=== PATIENT | female | born 1970 | race Caucasian/White ===

== ENCOUNTER 2016-06-14 09:44 | Inpatient (IN) | payer OTHER ==
--- NOTE | ~2016-06-14 | PN ---
Unit #: [id number] #: [id number] Patient: DARBY HIGH [id number] [facility] [address] [place] [address] [id number] MR#: [id number] NAME: DARBY HIGH. ROOM: P178 Age: 46 Sex: F Admission Date: 06/14/2016 : 1970 Attending Physician: Lydia Dean M.D. Admitting Physician: Lydia Dean M.D. Primary Care Physician: Primary Care Physician Phyllis SAMSON NOTES DATE June 19, 2016 DISCUSSION Ms. High is a 46-year-old white female, who was seen today and chart was reviewed and the case was discussed with the staff. The patient has been anxious, withdrawn, and rather seclusive to herself. She stated that she is doing "a little bit better." Overall, she has been taking the medications and tolerating them fairly well with no reported side effects. MENTAL STATUS EXAMINATION Middle-aged white female, who was casually dressed with fair personal hygiene and appears to be in no acute distress or discomfort. The patient was awake and alert on interaction with intact orientation. Her mood is anxious with a congruent affect. The patient denies any suicidal or homicidal ideations. Her insight and judgment remain slightly impaired. TREATMENT PLAN 1. We will continue her on her current medications and treatment protocol, and will monitor her response to the medications, and make further adjustments as needed. 2. We will continue to followup. Dictated by... Rachel Garcia/angelica TD: 06/20/2016 10:35 JOB #: [id number] Unit #: [id number] #: [id number] Patient: DARBY HIGH PARMJIT PROGRESS NOTES Page 1 of 1 X Lydia Dean MD PROGRESS NOTE
--- NOTE | ~2016-06-14 | HP ---
Unit #: [id number] #: [id number] Patient: PAIGE HIGH [id number] [place] [address] [id number] I MR#: [id number] NAME: PAIGE HIGH. ROOM: P178 Age: 46 Sex: F Admission Date: 06/14/2016 : 1970 Attending Physician: Lydia Dean M.D. Admitting Physician: Lydia Dean M.D. Primary Care Physician: Primary Care Physician No HISTORY AND PHYSICAL HISTORY OF PRESENT ILLNESS Paige is a 46 year old, admitted to [facility] for the continued drug use. She has had numerous admissions to this facility for the same. PAST MEDICAL HISTORY 1. 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 2. Hepatitis C. 3. Seizure disorder. 4. Morbid obesity. 5. Degenerative disc disease. a. Chronic pain. PAST SURGICAL HISTORY 1. Right hip. 2. Tonsillectomy and adenoidectomy. 3. Cholecystectomy. 4. Hysterectomy. 5. PE tubes. ALLERGIES NSAIDs, penicillin, Toradol, and Zofran SOCIAL HISTORY She does not smoke, drinks alcohol on occasion and admits to a long history of poly-illicit substance abuse to include IV heroin and benzodiazepines. FAMILY HISTORY Medically noncontributory. REVIEW OF SYSTEMS CONSTITUTIONAL: No fever or chills. HEENT: Denies any sore throat, ear pain or runny nose. CARDIOVASCULAR: Denies chest pain, irregular heart rhythm or palpitations. CHEST: Denies shortness of breath or cough. No hemoptysis. GASTROINTESTINAL: Denies nausea, vomiting, diarrhea or chronic constipation. ENDOCRINE: Denies history of increased thirst or urination. No recent significant weight loss or gain. GENITOURINARY: Denies dysuria, frequency, or hematuria. SKIN: Denies any rashes. She does report an abscess along her left leg. This is the site of her IV drug use. HEMATOLOGIC: Denies history of increased bleeding or bruising. Unit #: [id number] #: [id number] Patient: PAIGE HIGH MUSCULOSKELETAL: Denies any hot, swollen joints. No generalized muscle pain. NEUROLOGIC: Denies problems with vision or speech. No frequent, severe headaches. No numbness, tingling or weakness in any extremities. Denies loss of bladder or bowel control. CURRENT MEDICATIONS 1. Detox protocol 2. Keppra 750 mg b.i.d. 3. Neurontin 800 mg t.i.d. 4. Ibuprofen p.r.n. PHYSICAL EXAMINATION GENERAL: Alert, obese, no apparent distress. VITAL SIGNS: Blood pressure 150/80, heart rate 64, respirations 16, and temperature 98.6. WEIGHT: 165 pounds. HEIGHT: 5 feet 3 inches. SKIN: Warm and dry without rash. She does have an approximately golf ball sized red raised, slightly warm and tender area along the left calf. HEENT: Normocephalic. TMs not viewed. Oral and nasal passages clear. Conjunctivae clear. PERRLA. EOMs intact. NECK: Supple without lymphadenopathy or thyromegaly. HEART: Regular rate and rhythm without murmur. LUNGS: Clear. ABDOMEN: Soft, nontender. : Not done. EXTREMITIES: No evidence of cyanosis, clubbing or edema. Moves all without focal deficit. NEUROLOGICAL: Grossly within normal limits. Cranial Nerves: II: Visual ortega are intact. III, IV AND : Extraocular movements are intact. Pupils are equal, round and reactive to light. V: Facial sensation is grossly normal. VII: Facial movements and expression are normal. VIII: Auditory acuity grossly intact. IX, X: Uvula is midline. Phonation is normal. XI: Patient shrugs shoulders and turns head normally. XII: Tongue protrudes in the midline. Sensory and Motor Function: Sensory and motor sensation is grossly normal. Motor: moves all extremities well. Coordination: Gait is normal. Deep Tendon Reflexes: Intact. IMPRESSION 1. IV drug use. 2. Abscess along the left leg. RECOMMENDATIONS Psychiatric, per psychiatrist. MEDICAL 1. I see no contraindications to participating in facility's activities. 2. Detox per protocol. 3. Cleocin 300 mg one p.o. t.i.d. x7 days. MEDICAL PROGNOSIS Good. MEDICAL CONDITION Stable. Unit #: [id number] #: [id number] Patient: PAIGE HIGH Dictated by... Fela Zepeda P.A.-C. for Rachel Antoine/angelica TD: 06/15/2016 12:18 JOB #: [id number] HISTORY AND PHYSICAL Page 1 of 1 X Fela Zepeda HISTORY AND PHYSICAL
--- NOTE | ~2016-06-14 | PN ---
Unit #: [id number] #: [id number] Patient: DARBY HIGH [id number] [facility] [address] [place] [address] [id number] MR#: [id number] NAME: DARBY HIGH. ROOM: P178 Age: 46 Sex: F Admission Date: 06/14/2016 : 1970 Attending Physician: Lydia Dean M.D. Admitting Physician: Lydia Dean M.D. Primary Care Physician: Primary Care Physician Phyllis SAMSON NOTES DATE 06/18/2016 DISCUSSION Ms. High is a 46-year-old white female who was seen today and chart was reviewed and case was discussed with the staff. She has been anxious, withdrawn, and rather seclusive to herself. She had been cooperative with the treatment recommendation and has been taking the medication and tolerating them fairly well. No reported side effects. MENTAL STATUS EXAMINATION Middle-aged white female who is casually dressed with fair personal hygiene, appears to be in no acute distress or discomfort. The patient was awake and alert on interaction with intact orientation. Her mood is anxious with a congruent affect. She denies any suicidal or homicidal ideations. She denies any auditory or visual hallucinations. Her insight and judgment remain slightly impaired. TREATMENT PLAN 1. We will continue her on her current medications and treatment protocol, and we will monitor her response to the medications and make further adjustments as needed. 2. We will continue to follow up. Dictated by... Rachel Garcia/raymundo TD: 06/19/2016 11:44 JOB #: [id number] Unit #: [id number] #: [id number] Patient: DARBY HIGH PARMJIT PROGRESS NOTES Page 1 of 1 X Lydia Dean MD PROGRESS NOTE
--- NOTE | ~2016-06-14 | PA ---
Unit #: [id number] #: [id number] Patient: DARBY HIGH [id number] [facility] [address] [place] [address] [id number] I MR#: [id number] NAME: DARBY HIGH ROOM: P178 Age: 46 Sex: F Admission Date: 06/14/2016 : 1970 Date of Assessment: 06/14/2016 Attending Physician: Lydia Dean M.D. Admitting Physician: Lydia Dean M.D. Primary Care Physician: Primary Care Physician No PSYCHIATRIC ASSESSMENT DATE OF SERVICE 06/14/2016. IDENTIFYING DATA Ms. High is a 46-year-old single white female, who is a resident of [place], [place], and is very well known to us from previous multiple encounters and was self-referred to the hospital on a voluntary basis. CHIEF COMPLAINT "I've been feeling. I want to kill myself." HISTORY OF PRESENT ILLNESS Ms. High is a 46-year-old white female with history of mood disorder and substance abuse and dependence, who was self-referred to the hospital stating that she feels that she wants to kill herself and that her detox symptoms are tricking her suicidal thoughts. She reports not wanting to go through the pain of detox. Reports being addicted to heroin. Reports that she has been using heroin for the last 15 years and has been using at least 1.5 g daily by intravenous route and reports last use was last night. Reports longest period of sobriety was 18 months which was back in 2006. Reports that she has been having suicidal thoughts for the last 2 days and reports current detox symptoms include restlessness, irritability, diarrhea, stomach cramps. Reports having no other drug issues beside heroin, but reports that if she was to leave the hospital, she would attempt as she reports that she attempted last night by taking a bunch of Keppra, however, it did not work. She does have history of seizure disorder and reports that she has not been compliant with the treatment and as such, has been decompensating and does endorse increasing depression, anxiety, feelings of hopelessness and helplessness, and suicidal ideations. SUBSTANCE ABUSE HISTORY The patient reports opioid dependence and has been using heroin for the last 18 years and currently has been using at least a gram of IV heroin on daily basis. PAST PSYCHIATRIC HISTORY The patient has had history of multiple inpatient psychiatric hospitalizations at [facility] and other facilities and currently has not been active in treatment program, is not seeing a psychiatrist, not taking any psychotropic medications. PAST MEDICAL HISTORY Unit #: [id number] #: [id number] Patient: DARBY HIGH Seizure disorder. ALLERGIES Zofran, morphine, Toradol, penicillin, NSAIDs. PERSONAL AND SOCIAL HISTORY A 46-year-old white female, who reports that she is single, unemployed, and lives with her girlfriend and has poor social support system. MENTAL STATUS EXAMINATION Middle-aged white female who was casually dressed with fair personal hygiene, appears to be in no acute distress or discomfort. She was awake and alert on interaction with intact orientation to time, place, and person. Her mood was anxious and depressed with a congruent affect. Her speech was slow and restricted in content. Her thought processes were disorganized with some looseness of associations and flight of ideas and suicidal ideations. Her insight and judgment remain significantly impaired. DIAGNOSTIC IMPRESSION Psychiatric: Major depressive disorder, recurrent, moderate, without psychotic features; opioid dependence, moderate and acute withdrawals. Medical: Seizure disorder. Stressors: Moderate psychosocial stressors. TREATMENT PLAN 1. The patient has presented with a history of substance abuse and mood disorder, and has been decompensating and will need inpatient hospitalization for safety and stabilization. We will start her back on her home medications. We will adjust the medications and monitor response. 2. Supportive therapy was provided to the patient. 3. Safe, structured, and nourishing environment will be provided. ESTIMATED LENGTH OF STAY 4 to 5 days. ABILITY TO HELP SELF Limited. WILLINGNESS TO HELP SELF The patient appears to be willing to help self. STRENGTHS 1. Communicative. 2. Cooperative. PROBLEMS 1. Chronic dysphoric symptoms. 2. Chronic chemical dependency. 3. Poor social support system. DISCHARGE CRITERIA This will be contingent upon the patient's ability to go through detox without having any significant withdrawal symptoms as well as her ability to stay safe to herself, particularly after discharge from the hospital. Dictated by... Unit #: [id number] #: [id number] Patient: DARBY HIGH Lydia Dean M.D. JAYLON/andria TD: 06/15/2016 06:57 JOB #: [id number] PSYCHIATRIC ASSESSMENT Page 1 of 1 X Lydia Dean MD PSYCHIATRIC ASSESSMENT
--- NOTE | ~2016-06-14 | PN ---
Unit #: [id number] #: [id number] Patient: DARBY HIGH [id number] [facility] [address] [place] [address] [id number] MR#: [id number] NAME: DARBY HIGH. ROOM: P178 Age: 46 Sex: F Admission Date: 06/14/2016 : 1970 Attending Physician: Lydia Dean M.D. Admitting Physician: Lydia Dean M.D. Primary Care Physician: Primary Care Physician Phyllis SAMSON NOTES DATE OF SERVICE 06/17/2016 DISCUSSION Ms. High is a 46-year-old white female who was seen today. Chart was reviewed and case was discussed with staff. She has been anxious, withdrawn, and in distress and discomfort and seclusive to herself with persistent depressive symptoms as well as increasing anxiety and has been prescribed p.r.n. Vistaril. Meanwhile, she has been taking the medications and tolerating them fairly well. MENTAL STATUS EXAMINATION Middle-aged white female who is casually dressed with fair personal hygiene, appears to be in no acute distress or discomfort. The patient was awake and alert on interaction with intact orientation. Her mood is anxious with congruent affect. She denies any suicidal or homicidal ideations. Her insight and judgment remain slightly impaired. TREATMENT PLAN 1. We will continue her on her current medications and treatment protocol, and we will monitor her response to the medications and make further adjustments as needed. 2. We will continue to follow up. Dictated by... Rachel Garcia/yossig TD: 06/17/2016 14:42 JOB #: [id number] Unit #: [id number] #: [id number] Patient: DARBY HIGH PROGRESS NOTES Page 1 of 1 X Lydia Dean MD PROGRESS NOTE
--- NOTE | ~2016-06-14 | CO ---
Unit #: [id number] #: [id number] Patient: PAIGE HIGH [id number] [place] [address] [id number] I MR#: [id number] NAME: PAIGE HIGH ROOM: [facility] Age: 46 Sex: F Admission Date: 06/14/2016 : 1970 Attending Physician: Lydia Dean M.D. Primary Care Physician: Primary Care Physician No Consultation Date: 06/14/2016 CONSULTATION REPORT Paige is a 46-year-old who was admitted with an abscess on her thigh. This area was examined, addressed, and treatment outlined under her admission H and P dated 06/15/2016. Please see H and P dated 06/15/2016. Dictated by... Fela Zepeda P.A.-C. for Rachel Antoine/andria TD: 06/16/2016 18:01 JOB #: [id number] CONSULTATION REPORT Page 1 of 1 X Fela Zepeda CONSULTATION REPORT
--- NOTE | ~2016-06-14 | PN ---
Unit #: [id number] #: [id number] Patient: DARBY HIGH [id number] [facility] [address] [place] [address] [id number] MR#: [id number] NAME: DARBY HIGH. ROOM: P178 Age: 46 Sex: F Admission Date: 06/14/2016 : 1970 Attending Physician: Lydia Dean M.D. Admitting Physician: Lydia Dean M.D. Primary Care Physician: Primary Care Physician Phyllis SAMSON NOTES DATE June 16, 2016 DISCUSSION Ms. High is a 46-year-old white female, who was seen today and chart was reviewed and the case was discussed with the staff. She has been anxious, withdrawn, but has not shown any agitation and has been rather seclusive to herself and describes herself to be in distress and discomfort. However, she has been taking the medications and tolerating them fairly well with no reported side effects. MENTAL STATUS EXAMINATION Middle-aged white female, who was casually dressed with fair personal hygiene and appears to be in no acute distress or discomfort. She was awake and alert on interaction with intact orientation. Her mood is anxious and depressed with a congruent affect. She reports having suicidal ideations but denies any homicidal ideations. Her insight and judgment remain slightly impaired. TREATMENT PLAN We will continue her on her current medications and treatment protocol, and will monitor her response to the medications, and make further adjustments as needed. Dictated by... Rachel Garcia/angelica TD: 06/16/2016 09:10 JOB #: [id number] Unit #: [id number] #: [id number] Patient: DARBY HIGH PROGRESS NOTES Page 1 of 1 X Lydia Dean MD PROGRESS NOTE
--- NOTE | ~2016-06-14 | DS ---
Unit #: [id number] #: [id number] Patient: DARBY HIGH [id number] [facility] [address] [place] [address] [id number] I MR#: [id number] NAME: DARBY HIGH. ROOM: P178 Age: 46 Sex: F Admission Date: 06/14/2016 : 1970 Discharge Date: 06/20/2016 Attending Physician: Lydia Dean M.D. Primary Care Physician: Primary Care Physician No DISCHARGE SUMMARY IDENTIFYING DATA Ms. High is a 46-year-old single white female, who is a resident of [place], [place], and was known to us from previous encounter, was self-referred to the hospital on a voluntary basis. DISCHARGE DIAGNOSES Psychiatric: Opioid dependence, moderate and acute withdrawals; opioid-induced mood disorder. Medical: Seizure disorder. Stressors: Moderate psychosocial stressors. HISTORY OF PRESENT ILLNESS Please see initial psychiatric evaluation for details. PAST PSYCHIATRIC HISTORY Please see initial psychiatric evaluation for details. PAST MEDICAL HISTORY Please see initial psychiatric evaluation for details. HOSPITAL COURSE The [facility] and was oriented to the hospital environment. Routine p.r.n. medications were initiated, and she was started back on her home medications and was closely monitored. She was taking the medications regularly and was tolerating them fairly well and was able to come out of the detox without any complications and was willing to continue treatment on an outpatient basis. DISCHARGE MEDICATIONS Seroquel 600 mg at bedtime for bipolar, Requip 1 mg at bedtime for restless legs syndrome, and Keppra 750 mg b.i.d. for seizure disorder. DISCHARGE CONDITION Stable. PROGNOSIS Fair. Dictated by... Lydia Dean M.D. IAA/modl Unit #: [id number] #: [id number] Patient: DARBY HIGH TD: 06/21/2016 08:00 JOB #: [id number] DISCHARGE SUMMARY Page 1 of 1 X Lydia Dean MD X DISCHARGE SUMMARY
--- NOTE | ~2016-06-14 | TN ---
Unit #: [id number] #: [id number] [facility] [id number] [facility] [address] [place] [address] [id number] I MR#: [id number] NAME: DARBY HIGH ROOM: P178 Age: 46 Sex: F Admission Date: 06/14/2016 : 1970 Discharge Date: 06/20/2016 Attending Physician: Lydia Dean M.D. Primary Care Physician: Primary Care Physician No LOC TRANSFER NOTE DATE OF SERVICE 06/22/2016. HISTORY OF PRESENT ILLNESS Ms. High is a 46-year-old single white female, who was stepped down to the outpatient treatment program from the adult inpatient psychiatric unit at [facility], where she was hospitalized under my care from 06/14/2016 to 06/20/2016 and was brought to the hospital with acute depression and suicidal thoughts and relapsed on opioids and was medically detoxed from opioids and was stabilized on her regimen of Seroquel and Neurontin and was stepped down to the outpatient treatment program. When seen by me today, the patient appears to be doing much better and reports that she has been staying sober since she has been out of the hospital, though still has been having some mood swings, but reports that she has been taking the medications and has been tolerating them fairly well with no reported side effects. SUBSTANCE ABUSE HISTORY The patient has a history of opioid dependence, although she has experimented with other drugs over a period of time. Opioids appear to be her drug of choice. PAST PSYCHIATRIC HISTORY The patient has had a history of multiple inpatient psychiatric hospitalization and has been diagnosed and treated for bipolar disorder and substance abuse issues. PAST MEDICAL HISTORY Seizure disorder. PERSONAL AND SOCIAL HISTORY A 46-year-old white female, who reports that she is in a relationship and lives at home with her significant other and has fairly decent social support system. MENTAL STATUS EXAMINATION Middle-aged white female, who was casually dressed with fair personal hygiene, appears to be in no acute distress or discomfort. She was awake and alert on interaction with intact orientation to time, place, and person. Her mood was anxious with a congruent affect. Her speech was slow and goal directed. She denies any suicidal or homicidal ideations and also denies any auditory or visual hallucinations. Her insight and Unit #: [id number] #: [id number] Patient: DARBY HIGH judgment remain slightly impaired. DIAGNOSTIC IMPRESSION Psychiatric: Bipolar disorder, recurrent, moderate, without psychotic features and opioid dependence, moderate. Medical: None. Stressors: Moderate psychosocial stressors. TREATMENT PLAN 1. The patient has presented with a history of mood disorder and substance abuse. We will recommend enrolling her into the outpatient treatment program and maintaining her on her current medications. We will monitor her response. 2. Supportive therapy was provided to the patient. ESTIMATED LENGTH OF STAY 5 to 7 days. ABILITY TO HELP SELF Limited. WILLINGNESS TO HELP SELF The patient appears to be willing to help self. STRENGTHS 1. Communicative. 2. Cooperative. PROBLEMS 1. Chronic dysphoric symptoms. 2. Chronic chemical dependency. 3. Poor social support system. DISCHARGE CRITERIA This will be contingent upon the patient's ability to show resolution of her depression and anxiety as well as her ability to stay safe and sober, particularly after discharge from the program. Dictated by... Lydia Dean M.D. JAYLON/andria TD: 06/22/2016 13:22 JOB #: [id number] LOC TRANSFER NOTE Page 1 of 1 X Lydia Dean MD X LOC TRANSFER NOTE
--- NOTE | ~2016-06-14 | PN ---
Unit #: [id number] #: [id number] Patient: DARBY HIGH [id number] [facility] [address] [place] [address] [id number] MR#: [id number] NAME: DARBY HIGH. ROOM: P178 Age: 46 Sex: F Admission Date: 06/14/2016 : 1970 Attending Physician: Lydia Dean M.D. Admitting Physician: Lydia Dean M.D. Primary Care Physician: Primary Care Physician Phyllis SAMSON NOTES DATE June 15, 2016 DISCUSSION Ms. High is a 46-year-old white female, with substance abuse and mood disorder, who was seen today and chart was reviewed and the case was discussed with the staff. She was seen to be anxious, withdrawn, and in acute distress and discomfort as she goes through detox. Meanwhile, she has been taking the medications and tolerating them fairly well with no reported side effects. MENTAL STATUS EXAMINATION Middle-aged white female, who was casually dressed with fair personal hygiene and appears to be in no acute distress or discomfort. The patient was awake and alert with impaired attention and concentration. Her mood is anxious and depressed with a congruent affect. The patient reports having suicidal ideations but denies any homicidal ideations. Her insight and judgment remain slightly impaired. TREATMENT PLAN 1. We will continue her on her current medications and treatment protocol, and will monitor her response to the medications, and make further adjustments as needed. 2. We will continue to followup. Dictated by... Rachel Garcia/angelica TD: 06/15/2016 08:05 JOB #: [id number] Unit #: [id number] #: [id number] Patient: DARBY HIGH PARMJIT PROGRESS NOTES Page 1 of 1 X Lydia Dean MD PROGRESS NOTE
[2016-06-14 12:34] LABS: URINE APPEARANCE CLOUDY; URINE BILIRUBIN NEG (NEG); URINE BLOOD NEG (NEG); URINE COLOR DK YELLOW; URINE GLUCOSE NEG (NEG); URINE KETONE NEG (NEG); URINE LEUKOCYTE ESTERASE NEG (NEG); URINE NITRATE NEG (NEG); URINE PH 5.5 (5-8); URINE PROTEIN NEG (NEG); URINE SPECIFIC GRAVITY 1.026 (1.003-1.035)
[2016-06-14 12:48] LABS: AMPHETAMINE POS (NEG); BARBITURATES NEG (NEG); BENZODIAZEPINES NEG (NEG); COCAINE NEG (NEG); MARIJUANA NEG (NEG); OPIATES POS (NEG); TRICYCLIC ANTIDEPRESSANTS POS (NEG); U METHADONE NEG (NEG)
[2016-06-16 12:32] LABS: BASOPHIL% 0.3 % (0-2.5); EOSINOPHIL% 0.1 % (0.0-7.0); HEMOGLOBIN 12.8 gm/dL (12.0-16.0); LYMPHOCYTE# 1.5 X10e3 (1.0-3.5); LYMPHOCYTE% 18.2 % (17.0-45.0); MEAN CELL VOLUME 89.2 FL (83-96); MEAN CORPUSCULAR HEMOGLOBIN 29.3 PG (28-34); MEAN CORPUSCULAR HGB CONC 32.8 g/dL (30-36); MEAN PLATELET VOLUME 9.2 FL (6.5-11.5); MONOCYTE# 0.4 X10e3 (0-1.0); MONOCYTE% 5.3 % (3.0-12.0); NEUTROPHIL# 6.1 X10e3 (1.5-7.1); NEUTROPHIL% 76.1 % (40-75); PLATELET COUNT 311 X10e3 (140-420); RED BLOOD COUNT 4.37 X10e (3.90-5.30); RED CELL DISTRIBUTION WIDTH 13.5 % (11.0-15.5); WHITE BLOOD COUNT 8.1 X10e3 (4.0-10.5)
[2016-06-16 12:38] LABS: DIFF IND NO
[2016-06-16 12:56] LABS: ALBUMIN SERUM 3.2 g/dL (3.5-5.0); BILIRUBIN,TOTAL 0.6 mg/dL (0.2-2.0); BUN/CREATININE RATIO 21.42; CREATININE SERUM 0.7 mg/dL (0.6-1.4); GLOM FILT RATE Estimated 102.5 mL/min (>60); POTASSIUM 3.7 mmol/L (3.5-5.1); PROTEIN TOTAL SERUM 6.7 g/dL (6.0-8.3)
== END 2016-06-20 11:05 | disposition home or self-care (01) | DRG 897 ==
LOC: P1E 09:44
PROVIDERS: Psychiatry & Neurology Psychiatry
PROC: HZ2ZZZZ Detoxification Services for Substance Abuse Treatment (ICD-10-PCS; principal; 2016-06-14)
DX: F11.23 Opioid dependence with withdrawal (principal); R45.851 Suicidal ideations; F33.1 Major depressive disorder, recurrent, moderate; E66.01 Morbid (severe) obesity due to excess calories; L02.416 Cutaneous abscess of left lower limb; G40.909 Epilepsy, unspecified, not intractable, without status epilepticus; B19.20 Unspecified viral hepatitis C without hepatic coma; Z90.710 Acquired absence of both cervix and uterus; Z88.6 Allergy status to analgesic agent; Z88.0 Allergy status to penicillin; Z88.8 Allergy status to other drugs, medicaments and biological substances; F41.9 Anxiety disorder, unspecified; F11.24 Opioid dependence with opioid-induced mood disorder
CPT/HCPCS: 80053; 80307; 81003; 84703; 85025; 86592

== ENCOUNTER 2016-07-24 13:00 | Inpatient (IN) | payer OTHER ==
--- NOTE | ~2016-07-24 | DS ---
Unit #: [id number] #: [id number] Patient: DARBY HIGH [id number] [facility] [address] [place] [address] [id number] I MR#: [id number] NAME: DARBY HIGH. ROOM: P186 Age: 46 Sex: F Admission Date: 07/24/2016 : 1970 Discharge Date: 08/01/2016 Attending Physician: Lydia Dean M.D. Primary Care Physician: Generic Doctor Not In System DISCHARGE SUMMARY IDENTIFYING DATA Ms. High is a 46-year-old, single, white female, who is a resident of [place], [place], and is very well known to us from previous multiple encounters and was recently discharged from my care last month and brought herself back to the hospital on a voluntary basis. DISCHARGE DIAGNOSES Psychiatric: Major depressive disorder, recurrent, moderate, without psychotic features; opioid dependence, moderate and acute withdrawals. Medical: Epilepsy, degenerative disk disease. Stressors: Moderate psychosocial stressors. HISTORY OF PRESENT ILLNESS Please see initial psychiatric evaluation for details. PAST PSYCHIATRIC HISTORY Please see initial psychiatric evaluation for details. PAST MEDICAL HISTORY Please see initial psychiatric evaluation for details. HOSPITAL COURSE The patient was admitted to the adult chemical dependency unit at [facility] and was oriented to the hospital environment. Routine p.r.n. medications were initiated, and she was started back on her home medications and was closely monitored. She was taking the medications regularly and was tolerating them fairly well and was able to come out of the detox without any complications and was wanting to go home and was willing to continue treatment on an outpatient basis and as such, it was decided that she will be discharged home and will continue treatment on an outpatient basis. DISCHARGE MEDICATIONS Seroquel 600 mg at bedtime for mood disorder, Requip 1 mg at bedtime for restless legs syndrome, and Keppra 750 mg b.i.d. for seizure disorder. DISCHARGE CONDITION Stable. PROGNOSIS Fair. Unit #: [id number] #: [id number] Patient: DARBY HIGH Dictated by... Lydia Dean M.D. IAA/modl TD: 08/01/2016 06:36 JOB #: [id number] DISCHARGE SUMMARY Page 1 of 1 X Lydia Dean MD DISCHARGE SUMMARY
--- NOTE | ~2016-07-24 | PN ---
Unit #: [id number] #: [id number] Patient: DARBY HIGH [id number] [facility] [address] [place] [address] [id number] MR#: [id number] NAME: DARBY HIGH. ROOM: P186 Age: 46 Sex: F Admission Date: 07/24/2016 : 1970 Attending Physician: Lydia Dean M.D. Admitting Physician: Lydia Dean M.D. Primary Care Physician: Nikita Doctor Not In System [facility] PROGRESS NOTES DATE July 28, 2016 DISCUSSION Ms. High is a 46-year-old white female, who was seen today and chart was reviewed and the case was discussed with the staff. She remains anxious, withdrawn, depressed, and seclusive to herself but reports still having auditory and visual hallucinations. Meanwhile, she has been taking the medications and tolerating them fairly well with no reported side effects. MENTAL STATUS EXAMINATION Middle-aged white female, who was casually dressed with fair personal hygiene and appears to be in no acute distress or discomfort. She was awake and alert on interaction with intact orientation. Her mood is anxious and depressed with a congruent affect. Her speech is slow and goal-directed. The patient reports having suicidal ideations but denies homicidal ideations. and also denies any auditory or visual hallucinations. Her insight and judgment remain slightly impaired. TREATMENT PLAN 1. We will continue her on her current medications and treatment protocol, and will monitor her response to the medications, and make further adjustments as needed. 2. We will continue to followup. Dictated by... Rachel Garcia/angelica TD: 07/29/2016 05:21 JOB #: [id number] Unit #: [id number] #: [id number] Patient: DARBY HIGH [facility] PROGRESS NOTES Page 1 of 1 X Lydia Dean MD PROGRESS NOTE
--- NOTE | ~2016-07-24 | PN ---
Unit #: [id number] #: [id number] Patient: DARBY HIGH [id number] [facility] [address] [place] [address] [id number] I MR#: [id number] NAME: DARBY HIGH. ROOM: P186 Age: 46 Sex: F Admission Date: 07/24/2016 : 1970 Attending Physician: Lydia Dean M.D. Admitting Physician: Lydia Dean M.D. Primary Care Physician: Generic Doctor Not In System [facility] PROGRESS NOTES DATE 07/26/2016 DISCUSSION Ms. High is a 46-year-old white female who was seen today and chart was reviewed and case was discussed with the staff. She has been anxious, withdrawn and laying in her bed and was not feeling good and has been actively detoxing and now has been reporting having some auditory and visual hallucinations as well. Meanwhile, she has been taking medications and tolerating them fairly well with no reported side effects. MENTAL STATUS EXAMINATION Middle-aged white female who was casually dressed with fair personal hygiene and appears to be in no acute distress or discomfort. She was awake and alert on interaction with intact orientation. Her mood was anxious with congruent affect. Her speech is slow and goal-directed. She denies any suicidal or homicidal ideation. Her insight and judgement remains slightly impaired. TREATMENT PLAN 1. Will continue on current treatment protocol. Will monitor her response to medications and make further adjustments as needed. 2. Will continue to follow up. Dictated by... Rachel Garcia/katia TD: 07/26/2016 23:23 JOB #: [id number] Unit #: [id number] #: [id number] Patient: DARBY HIGH [facility] PROGRESS NOTES Page 1 of 1 X Lydia Dean MD PROGRESS NOTE
--- NOTE | ~2016-07-24 | HP ---
Unit #: [id number] #: [id number] Patient: PAIGE HIGH [id number] [place] [address] [id number] I MR#: [id number] NAME: PAIGE HIGH. ROOM: P186 Age: 46 Sex: F Admission Date: 07/24/2016 : 1970 Attending Physician: Lydia Dean M.D. Admitting Physician: Lydia Dean M.D. Primary Care Physician: Generic Doctor Not In System HISTORY AND PHYSICAL HISTORY OF PRESENT ILLNESS Paige is a 46 year old admitted to [facility] because of her continued drug use which includes IV heroin. She has had numerous admissions to this facility for the same. PAST MEDICAL HISTORY 1. Long history of illicit substance abuse to include IV heroin. 2. Hepatitis C. 3. Seizure disorder. 4. Morbid obesity. 5. Degenerative disc disease. a. Chronic pain. PAST SURGICAL HISTORY 1. Right hip 2. T&A 3. Cholecystectomy 4. Hysterectomy 5. PE tubes ALLERGIES NSAIDS, penicillin, Toradol, Zofran. SOCIAL HISTORY She does not smoke. Drinks alcohol on occasion. Has a long history of illicit substance abuse to include IV drugs. FAMILY HISTORY Medically noncontributory. REVIEW OF SYSTEMS CONSTITUTIONAL: No fever or chills. HEENT: Denies any sore throat, ear pain or runny nose. CARDIOVASCULAR: Denies chest pain, irregular heart rhythm or palpitations. CHEST: Denies shortness of breath or cough. No hemoptysis. GASTROINTESTINAL: Denies nausea, vomiting, diarrhea or chronic constipation. ENDOCRINE: Denies history of increased thirst or urination. No recent significant weight loss or gain. GENITOURINARY: Denies dysuria, frequency, or hematuria. SKIN: Denies any rashes. HEMATOLOGIC: Denies history of increased bleeding or bruising. Unit #: [id number] #: [id number] Patient: PAIGE HIGH MUSCULOSKELETAL: Denies any hot, swollen joints. No generalized muscle pain. NEUROLOGIC: Denies problems with vision or speech. No frequent, severe headaches. No numbness, tingling or weakness in any extremities. Denies loss of bladder or bowel control. CURRENT MEDICATIONS 1. Detox protocol 2. Requip 1 mg q.h.s. 3. Keppra 750 mg b.i.d. 4. Seroquel 600 mg q.h.s. PHYSICAL EXAMINATION GENERAL: Alert, morbidly obese, in no apparent distress. VITAL SIGNS: Blood pressure 136/62, heart rate 80, respirations 16, temperature 98.6. WEIGHT: 236 pounds. HEIGHT: 5'3". SKIN: Warm and dry without rash or lesion. HEENT: Normocephalic. TMs not viewed. Oral and nasal passages clear. Conjunctivae clear. Pupils equal, round and reactive to light and accommodation. Extraocular movements intact. NECK: Supple without lymphadenopathy or thyromegaly. HEART: Regular rate and rhythm without murmur. LUNGS: Clear. ABDOMEN: Soft, nontender. : Not done. EXTREMITIES: No evidence of cyanosis, clubbing or edema. Moves all extremities without focal deficit. NEUROLOGICAL: Grossly within normal limits. Cranial Nerves: II: Visual ortega are intact. III, IV AND : Extraocular movements are intact. Pupils are equal, round and reactive to light. V: Facial sensation is grossly normal. VII: Facial movements and expression are normal. VIII: Auditory acuity grossly intact. IX, X: Uvula is midline. Phonation is normal. XI: Patient shrugs shoulders and turns head normally. XII: Tongue protrudes in the midline. Sensory and Motor Function: Sensory and motor sensation is grossly normal. Motor: moves all extremities well. Coordination: Gait is normal. Deep Tendon Reflexes: Intact. IMPRESSION Psychiatric admission. RECOMMENDATIONS PSYCHIATRIC: Per psychiatrist. MEDICAL: I see no contraindications to participating in facility's activities. MEDICAL PROGNOSIS Good. MEDICAL CONDITION Stable. Unit #: [id number] #: [id number] Patient: PAIGE [facility] Dictated by... Fela Zepeda P.A.-C. for Rachel Antoine/ayanna TD: 07/25/2016 23:47 JOB #: [id number] HISTORY AND PHYSICAL Page 1 of 1 X Fela Zepeda HISTORY AND PHYSICAL
--- NOTE | ~2016-07-24 | CO ---
Unit #: [id number] #: [id number] Patient: PAIGE HIGH [id number] [place] [address] [id number] MR#: [id number] NAME: PAIGE HIGH ROOM: [facility] Age: 46 Sex: F Admission Date: 07/24/2016 : 1970 Attending Physician: Lydia Dean M.D. Primary Care Physician: Generic Doctor Not In System Consultation Date: 07/26/2016 CONSULTATION REPORT SUBJECTIVE Paige is a 46-year-old with an abnormal urinalysis on admission. Admission urinalysis showed 1+ bacteria, 5 to 10 wbc's. She had no complaints of urgency, frequency, or dysuria. She was started on Cipro 500 mg one p.o. b.i.d. x3 days. Dictated by... Fela Zepeda P.A.-C. for Rachel Antoine/andria TD: 08/02/2016 22:36 JOB #: [id number] CONSULTATION REPORT Page 1 of 1 X Fela Zepeda CONSULTATION REPORT
--- NOTE | ~2016-07-24 | PN ---
Unit #: [id number] #: [id number] Patient: DARBY HIGH [id number] [facility] [address] [place] [address] [id number] MR#: [id number] NAME: DARBY HIGH. ROOM: 86 Age: 46 Sex: F Admission Date: 07/24/2016 : 1970 Attending Physician: Lydia Dean M.D. Admitting Physician: Lydia Dean M.D. Primary Care Physician: Generic Doctor Not In System [facility] PROGRESS NOTES DATE July 30, 2016 DISCUSSION Ms. High is a 46-year-old white female, who was seen today and chart was reviewed and the case was discussed with the staff. The patient has been anxious, withdrawn, and rather seclusive to herself. Meanwhile, she has been cooperative with the treatment recommendations and she has been taking the medications and tolerating them fairly well with no reported side effects. MENTAL STATUS EXAMINATION Middle-aged white female, who was casually dressed with fair personal hygiene and appears to be in no acute distress or discomfort. The patient was awake and alert on interaction with intact orientation. Her mood is anxious with a congruent affect. Her speech is slow and goal-directed. She denies any suicidal or homicidal ideations. Her insight and judgment remain slightly impaired. TREATMENT PLAN 1. We will continue her on her current medications and treatment protocol, and will monitor her response to the medications, and make further adjustments as needed. 2. We will continue to followup. Dictated by... Rachel Garcia/angelica TD: 08/01/2016 07:00 JOB #: [id number] Unit #: [id number] #: [id number] Patient: DARBY HIGH [facility] PROGRESS NOTES Page 1 of 1 X Lydia Dean MD PROGRESS NOTE
--- NOTE | ~2016-07-24 | PN ---
Unit #: [id number] #: [id number] Patient: DARBY HIGH [id number] [facility] [address] [place] [address] [id number] I MR#: [id number] NAME: DARBY HIGH ROOM: P186 Age: 46 Sex: F Admission Date: 07/24/2016 : 1970 Attending Physician: Lydia Dean M.D. Admitting Physician: Lydia Dean M.D. Primary Care Physician: Generic Doctor Not In System [facility] PROGRESS NOTES DATE OF SERVICE: 07/25/2016 SUBJECTIVE Ms. High is a 46-year-old white female who was seen today and chart was reviewed and case was discussed with the staff. She has been anxious, withdrawn, depressed, and rather seclusive to herself and describes herself to be in distress and discomfort and she is going through detox. Meanwhile, she has been taking the medications and tolerating them fairly well with no reported side effects. MENTAL STATUS EXAMINATION Middle-aged white female who was casually dressed with fair personal hygiene, appears to be in no acute distress or discomfort. She was awake and alert with intact orientation. Her mood was anxious with a congruent affect. She denies any suicidal or homicidal ideations. Her insight and judgment remain slightly impaired. TREATMENT PLAN 1. We will continue her on her current treatment protocol. We will monitor her response to the medications and make further adjustments as needed. 2. We will continue to follow up. Dictated by... Rachel Garcia/andria TD: 07/26/2016 23:18 JOB #: [id number] [facility] PROGRESS NOTES Page 1 of 1 X Lydia Dean MD X PROGRESS NOTE
--- NOTE | ~2016-07-24 | PA ---
Unit #: [id number] #: [id number] Patient: DARBY HIGH [id number] [facility] [address] [place] [address] [id number] I MR#: [id number] NAME: DARBY HIGH ROOM: P186 Age: 46 Sex: F Admission Date: 07/24/2016 : 1970 Date of Assessment: 07/24/2016 Attending Physician: Lydia Dean M.D. Admitting Physician: Lydia Dean M.D. Primary Care Physician: Generic Doctor Not In System PSYCHIATRIC ASSESSMENT DATE OF SERVICE 07/24/2016. IDENTIFYING DATA Ms. High is a 46-year-old single white female, who is a resident of [place], [place], and is very well known to us from previous multiple encounters and was recently discharged from my care last month and brought herself back to the hospital on a voluntary basis. CHIEF COMPLAINT "I attempted suicide yesterday by ingesting 40 Keppra pills." HISTORY OF PRESENT ILLNESS Ms. High is a 46-year-old white female with long history of mood disorder and substance abuse, who was self-referred to the hospital and upon presentation, reported increasing depression and that she has attempted suicide yesterday by ingesting 40 Keppra pills and then recanted the story stating that she is suicidal and will overdose on pills if she had to go through heroin withdrawals and reports that she has been using 1.5 g a day of IV heroin and is currently having withdrawal symptoms and is depressed and cannot stay safe. She reports that she is facing revocation of her parole and is facing 7 years in [facility]dc on 08/09/2016 and she expresses a desire to detox and start Vivitrol. She was brought to the hospital by crisis intervention team of the [facility] [employer] and reports that they received a run to [facility] at the bus stop and a female who advised that she was going through withdrawals and upon arrival, officer made contact with that she was addicted to heroin and last use was this morning and that this amount was small and she had no affect and she felt shaky and sweaty, and otherwise exhibited no withdrawal symptoms and was seen to be alert and oriented and was refusing EMS, saying that she understood the symptoms and did not need medical treatment, she felt suicidal due to the symptoms and she tried to kill herself several years ago with numerous pills and that she would do the same now if she does not receive any treatment and as such, she was brought to [facility] and recommendation for inpatient level of care for safety and stabilization was made. SUBSTANCE ABUSE HISTORY The patient reports history of experimentation with methamphetamine and benzodiazepine, though opioids, particularly heroin has been her drug of choice and she reports that she has been using up to one and half g IV heroin a day. Unit #: [id number] #: [id number] Patient: DARBY HIGH PAST PSYCHIATRIC HISTORY The patient has had history of multiple inpatient psychiatric hospitalizations at [facility] along with outpatient treatment and has history of poor compliance with treatment recommendation, once again has not been compliant with the medication and as such, has been decompensating. PAST MEDICAL HISTORY Hepatitis C, degenerative disk disease, seizure disorder. ALLERGIES NSAIDs except ibuprofen, penicillin, morphine, ondansetron. PERSONAL AND SOCIAL HISTORY A 46-year-old white female, who reports that she is single, unemployed, and homeless and has poor social support system. MENTAL STATUS EXAMINATION Middle-aged white female who was casually dressed with fair personal hygiene, appears to be in no acute distress or discomfort. She was awake and alert on interaction with intact orientation to time, place, and person. Her mood was anxious and depressed with a congruent affect. Her speech was slow and goal directed. She reports having suicidal ideations, but denies any homicidal ideations, and also denies any auditory or visual hallucinations. Her insight and judgment remain significantly impaired. DIAGNOSTIC IMPRESSION Psychiatric: Major depressive disorder, recurrent, moderate, without psychotic features; opioid dependence, moderate and acute withdrawals. Medical: Epilepsy, degenerative disk disease. Stressors: Moderate psychosocial stressors. TREATMENT PLAN 1. The patient has presented with history of mood disorder and substance abuse and has been decompensating and will need inpatient hospitalization for detoxification, safety, and stabilization. We will start her back on her home medications and detox protocol will be initiated as well. 2. Supportive therapy was provided to the patient. 3. Safe, structured, and nourishing environment will be provided. ESTIMATED LENGTH OF STAY 5 to 7 days. ABILITY TO HELP SELF Limited. WILLINGNESS TO HELP SELF The patient appears to be willing to help self. STRENGTHS 1. Communicative. 2. Cooperative. PROBLEMS 1. Chronic dysphoric symptoms. 2. Chronic chemical dependency. 3. Poor social support system. Unit #: [id number] #: [id number] Patient: DARBY HIGH DISCHARGE CRITERIA This will be contingent upon the patient's ability to go through detox without having any significant withdrawal symptoms as well as her ability to stay safe to herself, particularly after discharge from the hospital. Dictated by... Rachel Garcia/andria TD: 07/25/2016 06:57 JOB #: [id number] PSYCHIATRIC ASSESSMENT Page 1 of 1 X Lydia Dean MD X PSYCHIATRIC ASSESSMENT
--- NOTE | ~2016-07-24 | PN ---
Unit #: [id number] #: [id number] Patient: DARBY HIGH [id number] [facility] [address] [place] [address] [id number] I MR#: [id number] NAME: DARBY HIGH. ROOM: P186 Age: 46 Sex: F Admission Date: 07/24/2016 : 1970 Attending Physician: Lydia Dean M.D. Admitting Physician: Lydia Dean M.D. Primary Care Physician: Nikita Doctor Not In System [facility] PROGRESS NOTES DATE OF SERVICE: 07/29/2016 SUBJECTIVE Ms. High is a 46-year-old white female who was seen today and chart was reviewed and case was discussed with the staff. She has been anxious, withdrawn, depressed, and rather seclusive to herself. Meanwhile, she has been cooperative with treatment recommendations and has been taking the medications and tolerating them fairly well with no reported side effects. MENTAL STATUS EXAMINATION Middle-aged white female who was casually dressed with fair personal hygiene, appears to be in no acute distress or discomfort. She was awake and alert with intact orientation. Her mood was anxious and depressed with a congruent affect. Her speech was slow and goal directed. She reports having suicidal ideation, but denies any intent or plan. She also denies any auditory or visual hallucinations earlier today. Her insight and judgment remain slightly impaired. TREATMENT PLAN 1. We will continue her on her current medications and treatment protocol. We will monitor her response to the medications and make further adjustments as needed. 2. We will continue to follow up. Dictated by... Rachel Garcia/andria TD: 07/29/2016 07:58 JOB #: [id number] Unit #: [id number] #: [id number] Patient: DARBY HIGH [facility] PROGRESS NOTES Page 1 of 1 X Lydia Dean MD PROGRESS NOTE
--- NOTE | ~2016-07-24 | PN ---
Unit #: [id number] #: [id number] Patient: DARBY HIGH [id number] [facility] [address] [place] [address] [id number] I MR#: [id number] NAME: DARBY HIGH ROOM: [facility] Age: 46 Sex: F Admission Date: 07/24/2016 : 1970 Attending Physician: Lydia Dean M.D. Admitting Physician: Lydia Dean M.D. Primary Care Physician: Generic Doctor Not In System [facility] PROGRESS NOTES DATE 07/31/2016 MENTAL STATUS EXAMINATION Middle-aged white female, who was casually dressed with fair personal hygiene, appears to be in no acute distress or discomfort. She was awake and alert on interaction with intact orientation. Her mood was anxious with a congruent affect. The patient denies any suicidal or homicidal ideation. Her insight and judgement remain slightly impaired. TREATMENT PLAN 1. We will continue her on her current medications and treatment protocol. We will monitor her response to the medications and make further adjustments as needed. 2. We will continue to follow up. Dictated by... Rachel Garcia/andria TD: 07/31/2016 12:05 JOB #: [id number] [facility] PROGRESS NOTES Page 1 of 1 X Lydia Dean MD PROGRESS NOTE
--- NOTE | ~2016-07-24 | PN ---
Unit #: [id number] #: [id number] Patient: DARBY HIGH [id number] [facility] [address] [place] [address] [id number] MR#: [id number] NAME: DARBY HIGH. ROOM: P186 Age: 46 Sex: F Admission Date: 07/24/2016 : 1970 Attending Physician: Lydia Dean M.D. Admitting Physician: Lydia Dean M.D. Primary Care Physician: Nikita Doctor Not In System [facility] PROGRESS NOTES DATE 07/27/2016 DISCUSSION Ms. High is a 46-year-old white female who was seen today and chart was reviewed and case was discussed with the staff. She reports persistent depression and anxiety and not feeling much better and still having auditory and visual hallucinations and also informed me that her baby sister last week and she has been going through grieving and was seen to be rather tearful while talking about her. Meanwhile, she has been taking medications and tolerating them fairly well with no reported side effects. MENTAL STATUS EXAMINATION Middle-aged white female who was casually dressed with fair personal hygiene and appears to be in no acute distress or discomfort. She was awake and alert on interaction with intact orientation. Her mood was anxious and depressed with congruent affect. She reports having suicidal ideations and visual hallucinations. Her insight and judgement remains slightly impaired. TREATMENT PLAN 1. Will continue on current treatment protocol. Will monitor her response to the medications and make further adjustments as needed. 2. Will continue to follow up. Dictated by... Rachel Garcia/katia TD: 07/28/2016 18:30 JOB #: [id number] Unit #: [id number] #: [id number] Patient: DARBY HIGH [facility] PROGRESS NOTES Page 1 of 1 X Lydia Dean MD PROGRESS NOTE
[2016-07-25 09:50] LABS: URINE APPEARANCE CLEAR; URINE BILIRUBIN NEG (NEG); URINE BLOOD NEG (NEG); URINE COLOR YELLOW; URINE GLUCOSE NEG (NEG); URINE KETONE 1+ (NEG); URINE LEUKOCYTE ESTERASE TRACE (NEG); URINE NITRATE NEG (NEG); URINE PH 6.5 (5-8); URINE PROTEIN NEG (NEG); URINE SPECIFIC GRAVITY 1.022 (1.003-1.035)
[2016-07-25 09:53] LABS: URBCS1 AUWI 0-2 /[HPF] (0-2); URINE BACTERIA AUWI 1+ (NEGATIVE); URINE SQUAMOUS EPITHELIAL CELL MOD /[HPF]
[2016-07-25 11:05] LABS: AMPHETAMINE POS (NEG); BARBITURATES NEG (NEG); BENZODIAZEPINES NEG (NEG); COCAINE NEG (NEG); MARIJUANA NEG (NEG); OPIATES POS (NEG); TRICYCLIC ANTIDEPRESSANTS NEG (NEG); U METHADONE NEG (NEG)
== END 2016-08-01 09:45 | DRG 897 ==
LOC: P1E 15:35
PROVIDERS: Psychiatry & Neurology Psychiatry
DX: F11.23 Opioid dependence with withdrawal (principal); F33.1 Major depressive disorder, recurrent, moderate; F19.10 Other psychoactive substance abuse, uncomplicated; G40.909 Epilepsy, unspecified, not intractable, without status epilepticus; E66.01 Morbid (severe) obesity due to excess calories
CPT/HCPCS: 80307; 81003